=== PATIENT | female | born 1995 | race Caucasian/White ===

== ENCOUNTER 2019-01-16 22:40 | Emergency (ER) | payer BC ==
[2019-01-16] MEDS ORDERED: Diphtheria,Pertussis(Acell),Tetanus Vaccine 0.5 ML Syringe IM ONE (23:32)
--- NOTE | 2019-01-16 23:38 | EDM.PDOC ---
ED HPI GENERAL MEDICAL PROBLEM - General Chief Complaint: Laceration Stated Complaint: CUT FINGER ON RT HAND Time Seen by Provider: 01/16/19 23:24 - History of Present Illness INITIAL COMMENTS - FREE TEXT/NARRATIVE: HISTORY AND PHYSICAL: History of present illness: The patient is a 23-year-old female who is unsure of her last tetanus shot and presents with 2 cuts to her right fingers that occurred just prior to admission when she was washing a glass and it broke. The patient is right-hand dominant. She says she has burning at the laceration on her index finger and her other digits are intact and the small laceration on her thumb she is not concerned about. She is able to move the digits but she says there is discomfort. There are no other injuries and prior to these events she was in her usual state of good health. Review of systems: As per history of present illness and below otherwise all systems reviewed and negative. Past medical history: As per history of present illness and as reviewed below otherwise noncontributory. Surgical history: As per history of present illness and as reviewed below otherwise noncontributory. Social history: No reported history of drug or alcohol abuse. Family history: As per history of present illness and as reviewed below otherwise noncontributory. Physical exam: HEENT: Atraumatic, normocephalic, negative for conjunctival pallor or scleral icterus, mucous membranes moist, throat clear, neck supple, nontender, trachea midline. Lungs: Clear to auscultation, breath sounds equal bilaterally, chest nontender. Heart: S1S2, regular rate and rhythm no overt murmurs Abdomen: Soft, nondistended, nontender. Negative for masses or hepatosplenomegaly. NABS Pelvis: Deferred Genitourinary: Deferred. Rectal: Deferred. Extremities: Atraumatic, full range of motion of all extremities with the exception of the right thumb and index finger where there are 2 lacerations seen. At the thumb along the radial aspect of the proximal thumb there is a 0.75 superficial flap-like laceration that is seen with well approximated skin edges. There is no depth to this laceration. There is no tenderness or soft tissue swelling. At the dorsal aspect of the right index finger at the proximal phalanx there is a 2.0 cm flap-like laceration seen with oozing of blood. There is no soft tissue swelling or erythema and the extensor and flexor tendon of this digit is intact without deficit against resistance. There was also a very small superficial 0.5 cm laceration seen near the dorsal aspect of the third MCP but does not require suturing Neurovascular unremarkable. Neuro: Awake, alert, oriented. Cranial nerves II through XII unremarkable. Cerebellum unremarkable. Motor and sensory unremarkable throughout. Exam nonfocal. Diagnostics: none Therapeutics: Tdap, wound cleansing and post suturing wound care, wound care to the superficial lack at the thumb Procedure note: After a digital block was placed with 1% lidocaine without epinephrine on the index finger the wounds were cleansed by nursing and were reexplored after cleansing. No foreign bodies were appreciated. The left thumb wound will be treated conservatively with bacitracin and a gauze as there is no reason for suturing due to the superficial nature of this. The 2 cm flap laceration on the index finger was prepped and draped in sterile fashion and the skin edges were reapproximated using a total number of #4 simple interrupted sutures of 4-0 nylon. The patient tolerated the procedure well and there were no complications. Bacitracin and a tube gauze were applied. The very small laceration at the dorsal aspect of the hand near the third MCP had bacitracin applied Impression: Superficial laceration of right thumb and dorsal right hand, laceration of right index finger Definitive disposition and diagnosis as appropriate pending reevaluation and review of above. Right Hand Pain Score (Numeric/FACES): 8 - Related Data Allergies Allergy/AdvReac Type Severity Reaction Status Date / Time No Known Allergies Allergy Verified 01/16/19 23:16 Home Meds: Home Meds . [No Known Home Meds] 01/16/19 [History] Past Medical History - Past Health History Medical/Surgical History: Denies Medical/Surgical History Psychiatric History: Reports: None - Infectious Disease History Infectious Disease History: Reports: Chicken Pox Social & Family History - Tobacco Use Smoking Status *Q: Current Every Day Smoker Years of Tobacco use: 6 Packs/Tins Daily: 1 - Recreational Drug Use Recreational Drug Use: No ED ROS GENERAL - Review of Systems Review Of Systems: ROS reveals no pertinent complaints other than HPI. ED EXAM, SKIN/RASH Exam: See Below (See dictation) Course - Vital Signs Last Recorded V/S: Last Vital Signs Temp 35.8 C 01/16/19 23:14 Pulse 77 01/16/19 23:14 Resp BP 113/62 01/16/19 23:14 Pulse Ox 100 01/16/19 23:14 - Orders/Labs/Meds Orders: Active Orders 24 hr Category Date Time Status Communication Order [RC] STAT Care 01/16/19 23:31 Active Vaccines to be Administered [RC] PER UNIT ROUTINE Care 01/16/19 23:32 Active Meds: Medications Discontinued Medications Generic Name Dose Route Start Last Admin Trade Name Maria Del Carmen PRN Reason Stop Dose Admin Diphtheria/Tetanus/Acell Pertussis 0.5 ml 01/16/19 23:32 01/16/19 23:42 Adacel IM 01/16/19 23:33 0.5 ml .ONCE ONE Administration Lidocaine HCl 5 ml 01/16/19 23:32 01/16/19 23:44 Xylocaine-Mpf 1% INJECT 01/16/19 23:33 5 ml ONETIME ONE Administration Departure - Departure Time of Disposition: 00:23 Disposition: Home, Self-Care 01 Condition: Good Clinical Impression: Laceration of finger of right hand Qualifiers: Encounter type: initial encounter Finger: unspecified finger Damage to nail status: without damage Foreign body presence: without foreign body Qualified Code(s): S61.219A - Laceration without foreign body of unspecified finger without damage to nail, initial encounter - Discharge Information Referrals: PCP,None [Primary Care Provider] - Forms: ED Department Discharge Additional Instructions: The following information is given to patients seen in the emergency department who are being discharged to home. This information is to outline your options for follow-up care. We provide all patients seen in our emergency department with a follow-up referral. The need for follow-up, as well as the timing and circumstances, are variable depending upon the specifics of your emergency department visit. If you don't have a primary care physician on staff, we will provide you with a referral. We always advise you to contact your personal physician following an emergency department visit to inform them of the circumstance of the visit and for follow-up with them and/or the need for any referrals to a consulting specialist. The emergency department will also refer you to a specialist when appropriate. This referral assures that you have the opportunity for followup care with a specialist. All of these measure are taken in an effort to provide you with optimal care, which includes your followup. Under all circumstances we always encourage you to contact your private physician who remains a resource for coordinating your care. When calling for followup care, please make the office aware that this follow-up is from your recent emergency room visit. If for any reason you are refused follow-up, please contact the [facility] emergency department at and ask to speak to the emergency department charge nurse. [facility] Primary care- Internal Medicine and Family [address] [address] Keep the wounds clean and dry for the next 24 hours and then remove dressings in cleanse with mild soap and water pat dry and apply bacitracin or Neosporin. Keep the wound open to air as much as possible and did not use Band-Aids and if you do need to cover them use a breathable dressing like gauze. The sutures need to come out in 7 days and you can return here to the ED for removal or see her provider in the clinic. Return to ER sooner as needed and as discussed - My Orders Last 24 Hours: My Active Orders 01/16/19 23:31 Communication Order [RC] STAT 01/16/19 23:32 Vaccines to be Administered [RC] PER UNIT ROUTINE - Assessment/Plan Last 24 Hours: My Active Orders 01/16/19 23:31 Communication Order [RC] STAT 01/16/19 23:32 Vaccines to be Administered [RC] PER UNIT ROUTINE
[2019-01-17] MEDS ORDERED: Bacitracin Oint 1 GM U/D Packet TOP ONE (00:23)
== END 2019-01-17 00:40 | disposition home or self-care (01) ==
LOC: MW.ED 22:40
DX: S61.011A Laceration without foreign body of right thumb without damage to nail, initial encounter (principal); S61.210A Laceration without foreign body of right index finger without damage to nail, initial encounter; F17.210 Nicotine dependence, cigarettes, uncomplicated; W25.XXXA Contact with sharp glass, initial encounter; Z23 Encounter for immunization
CPT/HCPCS: 12001; 90471; 90715; 99282; J2001; 99283

== ENCOUNTER 2019-09-03 23:41 | Emergency (ER) | payer SELFPAY ==
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
== END 2019-09-04 ==
LOC: MW.ED 23:41
DX: Z04.1 Encounter for examination and observation following transport accident (principal)
CPT/HCPCS: 99282; 99284